=== PATIENT | male | born 1965 | race Caucasian/White ===

== ENCOUNTER 2019-06-20 12:08 | Inpatient (IN) | payer OTHER ==
[~2019-06-20] VITALS: Ht 185.4 cm; Wt 130.4 kg
[~2019-06-20 12:08] MED LIST changes: -ASPI81CH PO; -ATOR40TA PO; -CARV6.25 PO; -DEEP SEA44 ML; -FURO40 PO; -LISI20 PO; -METPRE4DP PO; -TICA90TA PO
[2019-06-20] MEDS ORDERED: METPRE4DP PO (13:35)
--- NOTE | 2019-06-20 15:00 | NUR ---
PT ARRIVED TO ROOM 304 FROM ER VIA W/C. PT STANDS, AMBULATES WITHOUT DIFFICULTY WITH STEADY GAIT. INDEPENDENT IN ROOM WITH ADL'S. DENIES PAIN OR DISCOMFORT. REPORTS HUNGER. ORIENTED TO ROOM AND CALL SYSTEM. CALL SCOTT IN REACH, WILL CONTINUE TO MONITOR.
--- NOTE | 2019-06-20 19:16 | NUR ---
NO ACUTE CHANGES SINCE ARRIVAL TO ROOM, WILL REPORT TO ONCOMING RN
[2019-06-21 04:50] LABS: BASOPHILS ABSOLUTE AUTO 0.02 K/mm3 (0.00-0.23); BASOPHILS PERCENT AUTO 0 % (0-2); EOSINOPHILS PERCENT AUTO 0 % (0-6); Hematocrit 43.6 % (37.0-53.0); Hemoglobin 14.5 g/dL (13.5-17.5); IMMATURE GRAN ABSOLUTE AUTO 0.04 K/mm3 (0.00-0.10); IMMATURE GRAN PERCENT AUTO 0 % (0-1); LYMPHOCYTES PERCENT AUTO 9 % (21-46); MONOCYTES ABSOLUTE AUTO 0.72 K/mm3 (0.16-1.47); MONOCYTES PERCENT AUTO 6 % (4-13); Mean Corpuscular HGB 28.8 pg (26.0-34.0); Mean Corpuscular HGB Conc 33.3 g/dL (31.5-36.5); Mean Corpuscular Volume 87 fL (80-100); Mean Platelet Volume 11.5 fL (9.1-12.4); NEUTROPHILS ABSOLUTE AUTO 10.74 K/mm3 (1.96-9.15); NEUTROPHILS PERCENT AUTO 84 % (41-73); Platelet Count 181 K/mm3 (150-400); RDW Coefficient Variation 12.5 % (11.7-14.2); RDW Standard Deviation 39.6 fL (35.1-46.3); Red Blood Cell Count 5.04 M/mm3 (4.30-5.90); White Blood Cell Count 12.72 K/mm3 (4.00-11.30)
[2019-06-21 05:07] LABS: Anion Gap 7 mmol/L (6-16); Blood Urea Nitrogen 28 mg/dL (8-24); Bun/Creatinine Ratio 36.4 (12.0-20.0); CO2, Blood 28 mmol/L (21-32); Calcium, Blood 8.8 mg/dL (8.5-10.1); Chloride, Blood 101 mmol/L (98-108); Creatinine, Blood 0.77 mg/dL (0.60-1.20); Glomerular Filtration Rate >60 (60-); Glucose, Blood 284 mg/dL (70-99); Potassium, Blood 4.3 mmol/L (3.5-5.5); Sodium, Blood 136 mmol/L (136-145)
--- NOTE | 2019-06-21 06:14 | NUR ---
SHIFT SUMMARY PT A/O INDEPENDENT. NO C/O PAIN OR CP. HE WAS ABLE TO SLEEP T/O NIGHT. STATES HIS BREATHING IS BETTER THAN IT WAS BEFORE. CALL LIGHT IN REACH.
--- NOTE | 2019-06-21 12:01 | NUR ---
Echocardiogram using 0.6ml of Definity contrast performed.
--- NOTE | 2019-06-21 16:48 | NUR ---
SHIFT SUMMARY: PT IS A/O X 4 WITH NO C/O PAIN. HE DENIES CHEST PAIN AND HAS NO SOB, LUNGS ARE CLEAR WITH TRACE EDEMA IN BLE. CARDIO CONSULT WAS CALLED IN AND THE DR IS SCHEDULING AN ANGIOGRAM IN THE MORNING. PT WILL BE NPO AFTER MIDNIGHT AND IS AGREEABLE TO HIS TX PLAN. CBGS HAVE BEEN COVERED WITH SLIDING SCALE ORDERED. PT IS PLEASANT AND COOPERATIVE WITH HIS CARE. HE IS UP AD HUMERA AND WALKS IN THE HALLS WITH NO ISSUES. HE CALLS FOR HELP WHEN NEEDED.
--- NOTE | 2019-06-21 19:52 | NUR ---
1919; ASSUMED CARE OF PATIEN. PATIENT SITTING DANGLING AT BEDSIDE, TALKING ON PHONE. PT DENIES PAIN/SOB/N/V/D BED LOW AND LOCKED. CALL SCOTT WITHIN REACH. 1953: PT OOB TO WALK IN [place].
[2019-06-22 04:53] LABS: BASOPHILS ABSOLUTE AUTO 0.11 K/mm3 (0.00-0.23); BASOPHILS PERCENT AUTO 1 % (0-2); EOSINOPHILS ABSOLUTE AUTO 0.18 K/mm3 (0.00-0.68); EOSINOPHILS PERCENT AUTO 2 % (0-6); Hematocrit 44.5 % (37.0-53.0); Hemoglobin 14.8 g/dL (13.5-17.5); IMMATURE GRAN ABSOLUTE AUTO 0.03 K/mm3 (0.00-0.10); IMMATURE GRAN PERCENT AUTO 0 % (0-1); LYMPHOCYTES ABSOLUTE AUTO 3.87 K/mm3 (0.84-5.20); LYMPHOCYTES PERCENT AUTO 34 % (21-46); MONOCYTES ABSOLUTE AUTO 0.97 K/mm3 (0.16-1.47); MONOCYTES PERCENT AUTO 8 % (4-13); Mean Corpuscular HGB 29.3 pg (26.0-34.0); Mean Corpuscular HGB Conc 33.3 g/dL (31.5-36.5); Mean Corpuscular Volume 88 fL (80-100); NEUTROPHILS ABSOLUTE AUTO 6.34 K/mm3 (1.96-9.15); NEUTROPHILS PERCENT AUTO 55 % (41-73); Platelet Count 183 K/mm3 (150-400); RDW Standard Deviation 41.6 fL (35.1-46.3); Red Blood Cell Count 5.05 M/mm3 (4.30-5.90)
[2019-06-22 05:05] LABS: International Normalized Ratio 0.97; Prothrombin Time Results 10.3 Sec (9.7-11.5)
[2019-06-22 05:17] LABS: Magnesium, Blood 1.8 mg/dL (1.6-2.4)
[2019-06-22 05:19] LABS: Anion Gap 5 mmol/L (6-16); Blood Urea Nitrogen 39 mg/dL (8-24); Bun/Creatinine Ratio 47.9 (12.0-20.0); CO2, Blood 28 mmol/L (21-32); Calcium, Blood 9.2 mg/dL (8.5-10.1); Chloride, Blood 103 mmol/L (98-108); Creatinine, Blood 0.82 mg/dL (0.60-1.20); Glomerular Filtration Rate >60 (60-); Glucose, Blood 249 mg/dL (70-99); Potassium, Blood 4.3 mmol/L (3.5-5.5); Sodium, Blood 136 mmol/L (136-145)
--- NOTE | 2019-06-22 10:29 | NUR ---
PT HAS BEEN A/O X 4 THIS MORNING WITH NO C/O PAIN OR DISCOMFORT. PT DENIES CHEST PAIN AND SOB. PER STUDIO OWNER PT IS IN SINUS RHYTHM @ 99. PT WAS CHEDULED FOR AN ANGIOGRAM THIS MORNING AND THE NURSES FROM THE [facility]ART [facility] CAME TO PICK HIM UP AROUND 10:15. PT HAS BEEN NPO SINCE MIDNIGHT. PT REPORTS HE IS MILDLY NERVOUS ABOUT THE PROCEDURE BUT IS COMPLIANT AND COOPERATIVE WITH HIS CURRENT TX PLAN. ALL BELONGINGS WERE BAGGED AND LABELED AND WILL BE SENT TO PCU 6. REPORT TO BE CALLED TO RECEIVING NURSE.
--- NOTE | 2019-06-22 11:01 | NUR ---
Telephone report received from Rajeev Peralta RN. STates that the pt has gone to the heart center for angiogram.
--- NOTE | 2019-06-22 12:49 | NUR ---
Pt arrived from [facility], two TR bands in place, one on each wrist. Sites are without bruising, swelling, bleeding or evidence of hematoma. Left band inflated 17 cc and right band 15 cc per report. The pt is alert, oriented, and cheerfully conversant. Denies pain or difficulty breathing at this time at rest. Walked to the bathroom to void and stated he had no pain or difficulty breathing. Was able to void without difficulty. Sitting on the side of the bed, eating sandwiches now.
--- NOTE | 2019-06-22 13:23 | NUR ---
No changes to the pt 's condition. ONe time high blood pressure, probably positional as the pt was sitting on the side of the bed, and blood pressure must be taken on his leg due to TR bands presence on both wrists. At this time, the pt is l sheree down and the pressure is WNL. No changes to the assesments of bilateral wrist arterial acces sites.
--- NOTE | 2019-06-22 15:28 | NUR ---
2 CC AIR REMOVED FROM TR BANDS, BILATERALLY. NO COMPLICATONS.
--- NOTE | 2019-06-22 16:00 | NUR ---
total of 7 cc of air has been removed from the right TR band. No bleeding, no bruising, no swelling, no evidence of hematoma. The pt is without any chest pain, discomfort, dyspnea or shortness of breath at rest nor with activity. Occasional dry cough noted. total of 6 cc air removed from the left TR band, also without any complications.
--- NOTE | 2019-06-22 17:45 | NUR ---
TR bands were fully deflated at 1650. The pt's wrists are without bruising, bleeding, hematoma, or swelling. He denies any pain or tingling in the arms. Sitting on the side of the bed, eating dinner without difficulty.
--- NOTE | 2019-06-22 17:55 | NUR ---
summary Received the pt from the heart center just after noon, with [address] Recovery from the TR bands was uneventful, and they were fully deflated by 5 pm. The pt has had stable vital signs, and ambulatory to the bathroom with no assistance after a couple of hours recovery time. Denies any pain, dyspnea or other discomfort. Voiding without difficulty. Heart rhythm noted to have developed a bundle branch block upon his arrival to PCU, which was different from his normal sinus rhythm while on the medical floor pre-angiogram. Dr. Raines was called, and he said that this had been noted as changed during the angiogram procedure today. EKG for documentation was done per his order post angio.
--- NOTE | 2019-06-22 18:35 | NUR ---
TR bands were removed, and the areas cleaned on both wrists and sterile clear dressing was applied. NO bleeding, no bruising, no swelling, no signs of hematoma. Pt denies any pain or discomfort. Vital signs remain stable.
--- NOTE | 2019-06-22 19:27 | NUR ---
BEDSIDE REPORT GIVEN TO NYASIA ALONZO RN. BILATERAL WRIST ARTERIAL ACCESS SITES ARE UNREMARKABLE.
[2019-06-23 03:45] LABS: Anion Gap 5 mmol/L (6-16); Blood Urea Nitrogen 39 mg/dL (8-24); Bun/Creatinine Ratio 47.8 (12.0-20.0); CO2, Blood 30 mmol/L (21-32); Calcium, Blood 8.8 mg/dL (8.5-10.1); Chloride, Blood 102 mmol/L (98-108); Creatinine, Blood 0.82 mg/dL (0.60-1.20); Glomerular Filtration Rate >60 (60-); Glucose, Blood 231 mg/dL (70-99); Magnesium, Blood 1.7 mg/dL (1.6-2.4); Potassium, Blood 4.6 mmol/L (3.5-5.5); Sodium, Blood 137 mmol/L (136-145)
--- NOTE | 2019-06-23 05:26 | NUR ---
SHIFT SUMMARY PT SLEEPING IN ROOM COMFORTABLY AT THIS TIME. NO AUCTE CHANGES IN STATUS T/O NIGHT. PT SLEPT WELL IN PERIODS, ASKED FOR SNACK DURING THE EARLY PORTION OF SHIFT. RESP EVEN UNLABORED ON RA W/ SATS >92%. DENIED ANY CP OR SOB. PT IS INDEPENDENT IN ROOM CALLS APPROPRIATELY. ARM BOARDS ON BILAT WRISTS FROM ANGIO IN PLACE. PT CAUTIOUS WITH MOVEMTNS AND REPORTS UNDERSTANDING OF BEING GENTLE W/ BILAT ARMS. PT TO UNDERGO CATH LATER THIS WEEK FOR STENT PLACEMENT, PER PT BUDGET ASSISTANT TOLD PT FRIDAY AFTERNOON. NO NOTE IS FOUND REPORTING DATE/TIME OF STENTS. WILL ADVISE DAY SHIFT RN TO DISCUSS AND GET TIMEFRAME FROM BUDGET ASSISTANT IN AM. CALL LIGHT IN REACH.
--- NOTE | 2019-06-23 16:42 | NUR ---
Ambulatory, walked in the hallway twice, slowly, and also throughout the day to void in the bathroom, without any chest pain/discomfort and only mild dyspnea. He states that he is noticing that he is still having some shortness of breath with activity, but that it is much better than before he came into the hospital. Per telemetry, sinus rhythm without bundle branch block which was seen yesterday. Blood pressure has been slightly lower. Instructed the pt to make position changes slowly and pay attention to how he feels as he might experience lightheadedness as his body is adjusting to the new medications. He denies feeling any dizzyness/lightheadedness.
[2019-06-24 04:32] LABS: Anion Gap 5 mmol/L (6-16); Blood Urea Nitrogen 32 mg/dL (8-24); Bun/Creatinine Ratio 40.5 (12.0-20.0); CO2, Blood 31 mmol/L (21-32); Calcium, Blood 9.3 mg/dL (8.5-10.1); Chloride, Blood 103 mmol/L (98-108); Creatinine, Blood 0.79 mg/dL (0.60-1.20); Glomerular Filtration Rate >60 (60-); Glucose, Blood 194 mg/dL (70-99); Magnesium, Blood 1.9 mg/dL (1.6-2.4); Potassium, Blood 4.6 mmol/L (3.5-5.5); Sodium, Blood 139 mmol/L (136-145)
--- NOTE | 2019-06-24 05:01 | NUR ---
SHIFT SUMMARY PT SLEEPING IN ROOM COMFORTABLY AT THIS TIME. NO ACUTE CHANGES IN STATUS T/O NIGHT. PT SLEPT WELL. DENIED ANY CP OR SOB. RESP EVEN UNLBAORED ON RA W/ SATS >92%. PT WAS MADE NPO AT 0000 FOR POSSIBLE STENT PLACEMENT LATER TODAY BY SPOOL TENDER. PT IS INDEPENDENT IN ROOM TO RR. DENIES OTHER NEEDS. CALL LIGHT IN REACH.
--- NOTE | 2019-06-24 08:00 | NUR ---
PT SITTING UP ON SIDE OF BED FOR BREAKFAST, A/OX3, PLEASANT AND COOPERATIVE WITH CARE, FOLLOWS COMMANDS WELL, DENIES PAIN, JUST SOB, LUNGS ARE CLEAR DIM IN BASES, RESP EVEN AND UNLABORED, NO COUGH NOTED, HRR, TELE IN PLACE RUNNING SR WITH BBB, +1 EDEMA NOTED TO B/L LE, PPP+1, CAP REFILL <3SEC, VS STABLE, AFEBRILE, IV SITE IS CLEAR AND PATENT, BTX4, ABD LARGE SOFT NONTENDER, VOIDS VIA WHEELCHAIR, SKIN HAS CATH SITES TO B/L WRISTS, SITES ARE CLEAR, MAEW, MARGUERITE, CALL LIGHT IN REACH.
--- NOTE | 2019-06-24 19:17 | NUR ---
PT DOING OK, CARDIOLOGY WAS IN WANTS 80MG LASIX GIVEN, THIS WAS DONE, HE TOLERATED, WILL HAVE A CATH IN AM, WAS PASSED ON TO KEEP NPO AFTER MID. NO FURTHER CHANGES THIS SHIFT. CALL LIGHT IN REACH.
[2019-06-25 04:06] LABS: Hematocrit 46.1 % (37.0-53.0); Hemoglobin 15.7 g/dL (13.5-17.5); Mean Corpuscular HGB 29.2 pg (26.0-34.0); Mean Corpuscular HGB Conc 34.1 g/dL (31.5-36.5); Mean Corpuscular Volume 86 fL (80-100); Platelet Count 164 K/mm3 (150-400); RDW Coefficient Variation 12.5 % (11.7-14.2); RDW Standard Deviation 38.6 fL (35.1-46.3); Red Blood Cell Count 5.38 M/mm3 (4.30-5.90); White Blood Cell Count 7.62 K/mm3 (4.00-11.30)
[2019-06-25 04:31] LABS: Anion Gap 5 mmol/L (6-16); Blood Urea Nitrogen 41 mg/dL (8-24); Bun/Creatinine Ratio 46.6 (12.0-20.0); CO2, Blood 29 mmol/L (21-32); Calcium, Blood 9.3 mg/dL (8.5-10.1); Chloride, Blood 103 mmol/L (98-108); Creatinine, Blood 0.88 mg/dL (0.60-1.20); Glomerular Filtration Rate >60 (60-); Glucose, Blood 188 mg/dL (70-99); Potassium, Blood 4.3 mmol/L (3.5-5.5); Sodium, Blood 137 mmol/L (136-145)
--- NOTE | 2019-06-25 05:31 | NUR ---
SHIFT SUMMARY PT SLEEPIGN IN ROOM COMFORTABLY AT THIS TIME. NO ACUTE CHANGES IN STATUS T/O NIGHT. PT SLEPT WELL AND WOKE TO VERBAL STIMULI EASILY. DENIED CP OR SOB T/O NIGHT. RESP EVEN UNLABORED ON RA W/ SATS >92%. PT WAS MADE NPO AT MIDNIGHT FOR ANGIO AND STENT PLACEMENT TODAY. PT IS INDEPENDENT IN ROOM. CALL LIGHT WITHIN REACH.
--- NOTE | 2019-06-25 13:43 | NUR ---
PT RETURNED FROM SHIPPING [facility]NAGER; STABLE CONDITION; VSS; FEMORAL SITE NO SIGNS OF BLEEDING BRUISING OR PAIN; SITE IS SOFT; STRONG PEDAL PULSES; CALL LIGHT IN REACH; BED IN LOWEST POSITION; WILL CONTINUE TO MONITOR
--- NOTE | 2019-06-25 20:11 | NUR ---
54 Y/O MALE RESTING COMFORTABLY IN BED, DENIES CHEST PAIN OR NAUSEA, VOICED HE DOES HAVE DYSPNEA AT TIMES WHICH RESOLVES WITH REST. ALERT AND ORIENTED X 4, RIGHT GROIN TEGADERM DRESSING DRY AND INTACT WITH SURROUNDING SKIN REFLECTING NO S/S INFECTION, TISSUE SOFT TO TOUCH, PT VOICED HE DOES NOT FOLLOW DIABETIC ROUTINE HE TENDS TO NOT FOLLOW THE DIET OR TAKE INSULIN AT TIMES. PT REQUIRES DIABETIC REINFORCEMENT BY NURSING STAFF.
--- NOTE | 2019-06-26 04:19 | NUR ---
SHIFT SUMMARY: 54 Y/O MALE RESTED COMFORTABLY IN BED ALL SHIFT, DENIES PAIN, NAUSEA OR DYSPNEA THIS SHIFT, HAPPY AND COOPERAIVE, NO S/S RIGHT GROIN, VITAL SIGNS STABLE, PT AMBULATED 20 FEET IN HALLWAY AND BACK TO ROOM TWICE THIS SHIFT WITH GAIT SLOW AND STEADY, BED LOW POSITION WITH CALL LIGHT AT SIDE.
--- NOTE | 2019-06-26 08:50 | NUR ---
PT PLEASANT QUITE TALKATIVE. STATES FEELS READY TO GO HOME. RT GROIN SITE CDI, NO BLEEDING NOTED. NO HEMATOMA NONTENDER. H/R REG, VERY LIGHT MURMER NOTED. PER TELE NSR AT 88. LUNGS CLEAR, RESP EASY, UNLABORED. ON R.A. BT X4 LAST BM THIS AM. VOIDS PER BATHROOM. PT UP WALKING HALLS. VERBALIZES UNDERSTANDING OF 10# LIFTING LIMIT PER DR CONTRERAS. BED IN LOW POSITOIN, CALL LITE IN REACH, CALLS APPROP
[2019-06-26 09:33] LABS: Anion Gap 7 mmol/L (6-16); Blood Urea Nitrogen 34 mg/dL (8-24); Bun/Creatinine Ratio 41.9 (12.0-20.0); CO2, Blood 26 mmol/L (21-32); Chloride, Blood 102 mmol/L (98-108); Creatinine, Blood 0.81 mg/dL (0.60-1.20); Glomerular Filtration Rate >60 (60-); Glucose, Blood 271 mg/dL (70-99); Potassium, Blood 4.5 mmol/L (3.5-5.5); Sodium, Blood 135 mmol/L (136-145)
--- NOTE | 2019-06-26 10:04 | NUR ---
DR CONTRERAS IN RELEASING PT. REQUEST F/UP 1 WEEK, NEEDS 30 CAMPLE CARD FOR BRILENTA. SAMPLES GIVEN TO PT IN DRAWER. STATES ON FOLLOWUP CALL CAN SEWER INSPECTOR CARD AT HIS OFFICE ON . START CARDIAC REHAB
[2019-06-26] MEDS ORDERED: ASPI81CH PO (11:35)
[2019-06-26] MEDS ORDERED: ATOR40TA PO (11:36)
[2019-06-26] MEDS ORDERED: FURO40 PO (11:37)
[2019-06-26] MEDS ORDERED: CARV6.25 PO (11:37)
[2019-06-26] MEDS ORDERED: TICA90TA PO (11:38)
[2019-06-26] MEDS ORDERED: LISI20 PO (11:38)
[2019-06-26] MEDS ORDERED: DEEP SEA44 ML (11:40)
--- NOTE | 2019-06-26 12:40 | NUR ---
DISCHARGE REVIEWED WITH PT. PT VERBALIZED UNDERSTANDING OF MEDS, NEED FOR PICKING UP BRILINTA CARD FOR 30 DAY SAMPLE. 2 BOTTLES SAMPLES GIVEN TO PT PER DR. BASURTO PULLED INTACT. TELE REMOVED. PT TO CALL DRS FOR APPTS ON TUES AM. PT READIED TO GO.
--- NOTE | 2019-06-26 13:01 | NUR ---
YESICA D/C AT 1300 TAKEN BY ARIANA
== END 2019-06-26 13:00 | disposition home or self-care (01) | DRG 246 ==
LOC: ER 12:08 → PCU 14:27 → MEDS 14:27 → PCU 06-22 12:24
PROVIDERS: Internal Medicine; Internal Medicine Interventional Cardiology; ADMIT Hospitalist
PROC: 4A033BC Measurement of Arterial Pressure, Coronary, Percutaneous Approach (ICD-10-PCS; principal; 2019-06-25)
PROC: 027034Z Dilation of Coronary Artery, One Artery with Drug-eluting Intraluminal Device, Percutaneous Approach (ICD-10-PCS; 2019-06-25)
PROC: 02703ZZ Dilation of Coronary Artery, One Artery, Percutaneous Approach (ICD-10-PCS; 2019-06-25)
PROC: B240ZZ3 Ultrasonography of Single Coronary Artery, Intravascular (ICD-10-PCS; 2019-06-25)
PROC: 4A023N7 Measurement of Cardiac Sampling and Pressure, Left Heart, Percutaneous Approach (ICD-10-PCS; 2019-06-25)
PROC: 4A12XSH Monitoring of Cardiac Vascular Perfusion using Indocyanine Green Dye, External Approach (ICD-10-PCS; 2019-06-25)
PROC: B2111ZZ Fluoroscopy of Multiple Coronary Arteries using Low Osmolar Contrast (ICD-10-PCS; 2019-06-25)
DX: I25.10 Atherosclerotic heart disease of native coronary artery without angina pectoris (principal); I50.41 Acute combined systolic (congestive) and diastolic (congestive) heart failure; I42.0 Dilated cardiomyopathy; Z87.891 Personal history of nicotine dependence; J45.40 Moderate persistent asthma, uncomplicated; I34.0 Nonrheumatic mitral (valve) insufficiency; Z79.84 Long term (current) use of oral hypoglycemic drugs; E11.65 Type 2 diabetes mellitus with hyperglycemia
CPT/HCPCS: 36415; 76937; 80048; 82728; 82947; 83036; 83735; 83880; 84443; 84484; 85025; 85027; 85347; 85610; 85730; 92978; 93005; 93010; 93458; 93571; 99152; 99153; 99285-25; C1725; C1753; C1760; C1769; C1874; C1887; C1894; C8929; C9600; J0153; J1644; J1650; J1940; J2250; J3010; J7030; Q9957; Q9967

== ENCOUNTER → 2019-06-20 | Outpatient (CLI) | payer OTHER ==
[~2019-06-20] MED LIST: AMOX500 PO; ASPI81CH PO; ATOR40TA PO; CARV6.25 PO; DEEP SEA44 ML; FURO40 PO; GLIM4 PO; HYDACE5 PO; LISI20 PO; METF500 PO; METPRE4DP PO; PENVK500 PO; TICA90TA PO
[2019-06-20 11:15] LABS: BASOPHILS ABSOLUTE AUTO 0.11 K/mm3 (0.00-0.23); BASOPHILS PERCENT AUTO 1 % (0-2); EOSINOPHILS ABSOLUTE AUTO 0.05 K/mm3 (0.00-0.68); EOSINOPHILS PERCENT AUTO 0 % (0-6); Hematocrit 43.9 % (37.0-53.0); Hemoglobin 15.1 g/dL (13.5-17.5); IMMATURE GRAN ABSOLUTE AUTO 0.03 K/mm3 (0.00-0.10); IMMATURE GRAN PERCENT AUTO 0 % (0-1); LYMPHOCYTES ABSOLUTE AUTO 2.51 K/mm3 (0.84-5.20); LYMPHOCYTES PERCENT AUTO 22 % (21-46); MONOCYTES ABSOLUTE AUTO 0.88 K/mm3 (0.16-1.47); MONOCYTES PERCENT AUTO 8 % (4-13); Mean Corpuscular HGB 29.6 pg (26.0-34.0); Mean Corpuscular HGB Conc 34.4 g/dL (31.5-36.5); Mean Corpuscular Volume 86 fL (80-100); NEUTROPHILS ABSOLUTE AUTO 7.73 K/mm3 (1.96-9.15); NEUTROPHILS PERCENT AUTO 68 % (41-73); Platelet Count 176 K/mm3 (150-400); RDW Coefficient Variation 12.9 % (11.7-14.2); RDW Standard Deviation 39.8 fL (35.1-46.3); White Blood Cell Count 11.31 K/mm3 (4.00-11.30)
[2019-06-20 11:35] LABS: Alanine Aminotransfer (ALT/SGP 41 U/L (12-78); Albumin, Blood 3.9 g/dL (3.4-5.0); Albumin/Globulin Ratio 0.9 (0.8-1.8); Alk Phos 54 U/L (40-126); Anion Gap 11 mmol/L (6-16); Aspartate Aminotrans (AST/SGOT 22 U/L (12-37); Bilirubin, Total 0.8 mg/dL (0.1-1.0); Blood Urea Nitrogen 17 mg/dL (8-24); Bun/Creatinine Ratio 19.3 (12.0-20.0); CO2, Blood 27 mmol/L (21-32); CPK Creatine Kinase 62 U/L (39-308); Chloride, Blood 100 mmol/L (98-108); Creatinine, Blood 0.88 mg/dL (0.60-1.20); Free Thyroxine 1.02 ng/dL (0.70-1.60); Globulin, Blood 4.2 g/dL (2.2-4.0); Glomerular Filtration Rate >60 (60-); Glucose, Blood 259 mg/dL (70-99); Potassium, Blood 4.4 mmol/L (3.5-5.5); Sodium, Blood 138 mmol/L (136-145); Thyroid Stimulating Hormone 3.009 uIU/mL (0.360-4.800); Total Protein, Blood 8.1 g/dL (6.4-8.2); Troponin I 0.212 ng/mL (0.000-0.040)
== END | disposition home or self-care (01) ==
LOC: LAB EV 11:09 → LAB SHORT 11:09
PROVIDERS: General Practice
DX: J44.9 Chronic obstructive pulmonary disease, unspecified (principal); I50.9 Heart failure, unspecified
CPT/HCPCS: 80053; 82550; 83880; 84439; 84443; 84484; 85025

== ENCOUNTER → 2019-11-04 | Outpatient (CLI) | payer OTHER ==
[~2019-11-04] MED LIST changes: +ASPI81CH PO; +ATOR40TA PO; +CARV6.25 PO; +DEEP SEA44 ML; +FURO40 PO; +LISI20 PO; +METPRE4DP PO; +TICA90TA PO
== END | disposition home or self-care (01) ==
LOC: LAB SHORT 16:10 → LAB EV 16:10
DX: L72.3 Sebaceous cyst (principal)
CPT/HCPCS: 87070; 87075; 87076; 87205

== ENCOUNTER → 2019-11-11 | Outpatient (CLI) | payer OTHER | END | disposition home or self-care (01) | LOC: LAB SHORT 12:09 → LAB EV 12:09 | DX: L72.3 Sebaceous cyst (principal) | CPT/HCPCS: 87070; 87075; 87205 ==

== ENCOUNTER 2020-07-31 13:32 | Inpatient (IN) | payer OTHER ==
[~2020-07-31] VITALS: Ht 185.4 cm; Wt 123.1 kg
[~2020-07-31 13:32] MED LIST changes: -BENADRYL25 MG PO; -Doxycycline Mo100 M1 PO; -FURO20 PO; -GLIP5 PO; -PLAVIX75 MG PO; -SPIR25 PO; -[UNRECOGNIZED DRUG - OTHER]
[2020-07-31] MEDS ORDERED: PLAVIX75 MG PO (14:31)
--- NOTE | 2020-07-31 17:03 | NUR ---
Echocardiogram completed.
[2020-07-31 17:21] LABS: Influenza A, PCR Negative (NEGATIVE); Influenza B, PCR Negative (NEGATIVE); Resp Syncytial Virus, PCR Negative (NEGATIVE); SARS-Cov-2 (COVID-19) PCR, MMC Negative (NEGATIVE)
[2020-07-31] MEDS ORDERED: Doxycycline Mo100 M1 PO (17:43)
[2020-07-31] MEDS ORDERED: BENADRYL25 MG PO (17:45)
[2020-07-31] MEDS ORDERED: [UNRECOGNIZED DRUG - OTHER] (17:47)
--- NOTE | 2020-07-31 18:55 | NUR ---
PT IS NEW ADMIT FROM ER FOR C/O ACUTE HF. PT STATES INCREASING SOB OVER THE PAST 2 WEEKS WITH MILD EDEMA TO BILATERAL FEET, WAS SEEN AT URGENT CARE TODAY AND FOUND TO HAVE ELEVATED TROPONIN LEVEL THEN SENT HERE FOR ADMISSION. PT IS A&OX4, TRANSFERS SELF FROM [facility] IN ROOM, SATS ON ROOM AIR, PLACED ON TELE WITH SINUS TACH ON MONITOR. PT DENIES SOB AND CP UPON ADMISSION. DINNER TRAY HAS BEEN ORDERED. WILL CONTINUE TO MONITOR UNTIL CHANGE OF SHIFT.
[2020-08-01 03:46] LABS: BASOPHILS ABSOLUTE AUTO 0.05 K/mm3 (0.00-0.23); BASOPHILS PERCENT AUTO 1 % (0-2); EOSINOPHILS ABSOLUTE AUTO 0.01 K/mm3 (0.00-0.68); EOSINOPHILS PERCENT AUTO 0 % (0-6); Hematocrit 43.3 % (37.0-53.0); Hemoglobin 14.2 g/dL (13.5-17.5); IMMATURE GRAN ABSOLUTE AUTO 0.03 K/mm3 (0.00-0.10); IMMATURE GRAN PERCENT AUTO 0 % (0-1); LYMPHOCYTES ABSOLUTE AUTO 1.07 K/mm3 (0.84-5.20); LYMPHOCYTES PERCENT AUTO 15 % (21-46); MONOCYTES ABSOLUTE AUTO 0.17 K/mm3 (0.16-1.47); MONOCYTES PERCENT AUTO 2 % (4-13); Mean Corpuscular HGB 28.2 pg (26.0-34.0); Mean Corpuscular HGB Conc 32.8 g/dL (31.5-36.5); Mean Corpuscular Volume 86 fL (80-100); Mean Platelet Volume 10.9 fL (9.1-12.4); NEUTROPHILS ABSOLUTE AUTO 5.95 K/mm3 (1.96-9.15); NEUTROPHILS PERCENT AUTO 82 % (41-73); Platelet Count 168 K/mm3 (150-400); RDW Coefficient Variation 11.8 % (11.7-14.2); RDW Standard Deviation 36.4 fL (35.1-46.3); Red Blood Cell Count 5.04 M/mm3 (4.30-5.90); White Blood Cell Count 7.28 K/mm3 (4.00-11.30)
[2020-08-01 04:05] LABS: Anion Gap 5 mmol/L (6-16); Blood Urea Nitrogen 24 mg/dL (8-24); Bun/Creatinine Ratio 39.1 (12.0-20.0); CO2, Blood 27 mmol/L (21-32); Chloride, Blood 103 mmol/L (98-108); Creatinine, Blood 0.61 mg/dL (0.60-1.20); Glomerular Filtration Rate >60 (60-); Glucose, Blood 353 mg/dL (70-99); Sodium, Blood 135 mmol/L (136-145)
--- NOTE | 2020-08-01 05:29 | NUR ---
SHIFT SUMMARY PT IS ALERT, ORIENTED, AND COOPERATIVE WITH CARE. PT DENIED ANY PAIN, OR CHEST DISCOMFORT. STATED HE WAS SLIGHTLY SHORT OF BREATH WHEN UP TO USE RESTROOM. VITALS STABLE, BP 120-130 SYSTOLIC, HR 90'S IN SINUS RHYTHM WITH PVC AND PAC'S, ON ROOM AIR WITH O2 SATS IN THE 90'S. BLOOD GLUCOSE HAS BEEN HYPERGLYCEMIC T/O THE NIGHT. PT HAD SEVERAL 2X2CM BLOOD SPOTS ON UNDERWEAR, PT WAS UNSURE WHERE IT WAS FROM, I ASSESSED THE AREA AND COULD NOT FIND THE SOURCE, PT HAD JUST URINATED, URINE AND URETHRA SHOWED NO BLOOD. PT DENIED ANY PAIN, NO MORE BLOOD WAS FOUND T/O SHIFT. PT ABLE TO GET SOME REST. WILL CONTINUE TO MONITOR UNTIL SHIFT CHANGE.
--- NOTE | 2020-08-01 16:36 | NUR ---
TRANSFER NOTE PT A&Ox4; CALM AND COOPERATIVE WITH CARE. PT UP WALKING IND T/O HALLS AND IN ROOM. PT DENIES PAIN, CHEST PAIN, SOB, NAUSEA AND DIZZINESS. VSS. NO OTHER ACUTE CHANGES NOTED DURING SHIFT. REPORT GIVEN TO [facility] R[facility]EE ASSUMING CARE OF PT. PT LEFT ROOM VIA WHEELCHAIR AT 1625.
--- NOTE | 2020-08-01 17:14 | NUR ---
PCU TRANSFER- PT ARRIVED TO ROOM 305 FROM PCU 2 AT 1650. PT INDEP UP IN ROOM. PT DENIES ANY PAIN OR OTHER COMPLAINTS. LS CLEAR, ON RA, PT REPORTS VERY MINIMAL SOB WITH EXERTION AND HAS MUCH IMPROVED SINCE ARRIVING. HRR. PT DENIES ANY CHEST PAIN. BLOOD GLUCOSE NOTED TO BE 433, DR FERNANDEZ NOTIFIED AND REPORTS WILL ADJUST ORDERS. PT ORIENTED TO ROOM AND CALL SYSTEM, CALL LIGHT IN REACH.
--- NOTE | 2020-08-02 03:52 | NUR ---
INCIDENT RESPONSE ENGINEER SUMMARY Brayan slept through the night. No complaints of discomfort or SOB. Lower extremity edema is 1+ bilateral which patient thinks is quite an improvement. He refused his only HS med which was librium. He stated He was not anxious or depressed, and he said he "hardly drank enough to go through any kind of withdrawel process". Hoping he will be able to go home after seeing the doctor tommorow.
[2020-08-02 04:57] LABS: BASOPHILS ABSOLUTE AUTO 0.08 K/mm3 (0.00-0.23); BASOPHILS PERCENT AUTO 1 % (0-2); EOSINOPHILS ABSOLUTE AUTO 0.11 K/mm3 (0.00-0.68); EOSINOPHILS PERCENT AUTO 1 % (0-6); Hematocrit 41.1 % (37.0-53.0); Hemoglobin 14.1 g/dL (13.5-17.5); IMMATURE GRAN ABSOLUTE AUTO 0.03 K/mm3 (0.00-0.10); IMMATURE GRAN PERCENT AUTO 0 % (0-1); LYMPHOCYTES ABSOLUTE AUTO 3.36 K/mm3 (0.84-5.20); LYMPHOCYTES PERCENT AUTO 34 % (21-46); MONOCYTES PERCENT AUTO 8 % (4-13); Mean Corpuscular HGB Conc 34.3 g/dL (31.5-36.5); Mean Corpuscular Volume 84 fL (80-100); Mean Platelet Volume 11.1 fL (9.1-12.4); NEUTROPHILS ABSOLUTE AUTO 5.55 K/mm3 (1.96-9.15); NEUTROPHILS PERCENT AUTO 56 % (41-73); Platelet Count 178 K/mm3 (150-400); RDW Coefficient Variation 11.9 % (11.7-14.2); RDW Standard Deviation 35.8 fL (35.1-46.3); Red Blood Cell Count 4.87 M/mm3 (4.30-5.90); White Blood Cell Count 9.93 K/mm3 (4.00-11.30)
[2020-08-02 05:16] LABS: Anion Gap 5 mmol/L (6-16); Blood Urea Nitrogen 31 mg/dL (8-24); Bun/Creatinine Ratio 45.2 (12.0-20.0); CO2, Blood 28 mmol/L (21-32); Chloride, Blood 102 mmol/L (98-108); Creatinine, Blood 0.69 mg/dL (0.60-1.20); Glomerular Filtration Rate >60 (60-); Glucose, Blood 203 mg/dL (70-99); Potassium, Blood 4.1 mmol/L (3.5-5.5); Sodium, Blood 135 mmol/L (136-145); Troponin I 0.267 ng/mL (0.000-0.040)
--- NOTE | 2020-08-02 10:04 | NUR ---
HYPOTENSION- BP NOTED TO BE 94/61 THIS AM, HR IN THE 80'S. SPOKE WITH DR FERNANDEZ WHO REPORTS TO GO AHEAD AND GIVE CARVEDILOL AND HOLD LISINOPRIL AND DIURETICS AT THIS TIME. WILL CONT TO MONITOR BP. PT DENIES ANY DIZZIESS OR LIGHTHEADEDNESS.
[2020-08-02] MEDS ORDERED: FURO20 PO (12:41)
[2020-08-02] MEDS ORDERED: GLIP5 PO (12:41)
[2020-08-02] MEDS ORDERED: SPIR25 PO (12:42)
--- NOTE | 2020-08-02 14:18 | NUR ---
DISCHARGE INSTRUCTIONS REVIEWED WITH PT. IV DC'D INTACT. RX FAXED TO [facility]. ATTEMPTED TO CALL PCP BUT NO RESPONSE FOR F/U APPT, PT REPORTS WILL CALL AND SCHEDULE AN APPT. PT ESTABLISHED WITH NEW SAMPLE BODY BUILDER DR ROJAS DUE TO HIS CARDIOLIGST LEAVING SOON, F/U APPT SCHEDULED. DISCUSSED IN DEPT WITH PT REGARDING MEDICATIONS, DIET AND WHAT TO MONITOR. PT DC'D HOME, ESCORTED OUT VIA W/C AT 1415.
== END 2020-08-02 14:15 | disposition home or self-care (01) | DRG 282 ==
LOC: ER 13:32 → PCU 15:50 → MEDS 15:50 → PCU 17:27 → MEDS 17:40 → PCU 08-01 12:52 → MEDS 08-01 16:36
PROVIDERS: Emergency Medicine; Internal Medicine; ADMIT Internal Medicine
DX: I11.0 Hypertensive heart disease with heart failure (principal); I21.A1 Myocardial infarction type 2; I50.43 Acute on chronic combined systolic (congestive) and diastolic (congestive) heart failure; E11.59 Type 2 diabetes mellitus with other circulatory complications; I25.10 Atherosclerotic heart disease of native coronary artery without angina pectoris; Z95.5 Presence of coronary angioplasty implant and graft; F17.210 Nicotine dependence, cigarettes, uncomplicated; J44.9 Chronic obstructive pulmonary disease, unspecified
CPT/HCPCS: 0241U; 36415; 80048; 82947; 84484; 85025; 93005; 93010; 99285-25; A9270; A9270-GY; C8929; J1940; J7512; Q9957

== ENCOUNTER → 2020-07-31 | Outpatient (CLI) | payer OTHER ==
[~2020-07-31] MED LIST changes: +BENADRYL25 MG PO; -CARV6.25 PO; +Carvedilol12.5 MG PO; +Doxycycline Mo100 M1 PO; +FURO20 PO; +GLIP5 PO; -LISI20 PO; +PLAVIX75 MG PO; +Prinivil10 MG PO; +SPIR25 PO; +[UNRECOGNIZED DRUG - OTHER]
[2020-07-31 12:18] LABS: BASOPHILS ABSOLUTE AUTO 0.07 K/mm3 (0.00-0.23); BASOPHILS PERCENT AUTO 1 % (0-2); EOSINOPHILS ABSOLUTE AUTO 0.13 K/mm3 (0.00-0.68); EOSINOPHILS PERCENT AUTO 2 % (0-6); Hematocrit 42.7 % (37.0-53.0); Hemoglobin 14.7 g/dL (13.5-17.5); IMMATURE GRAN ABSOLUTE AUTO 0.02 K/mm3 (0.00-0.10); IMMATURE GRAN PERCENT AUTO 0 % (0-1); LYMPHOCYTES ABSOLUTE AUTO 2.08 K/mm3 (0.84-5.20); LYMPHOCYTES PERCENT AUTO 26 % (21-46); MONOCYTES ABSOLUTE AUTO 0.62 K/mm3 (0.16-1.47); MONOCYTES PERCENT AUTO 8 % (4-13); Mean Corpuscular HGB 28.9 pg (26.0-34.0); Mean Corpuscular HGB Conc 34.4 g/dL (31.5-36.5); Mean Corpuscular Volume 84 fL (80-100); Mean Platelet Volume 11.1 fL (9.1-12.4); NEUTROPHILS ABSOLUTE AUTO 5.01 K/mm3 (1.96-9.15); NEUTROPHILS PERCENT AUTO 63 % (41-73); Platelet Count 177 K/mm3 (150-400); RDW Coefficient Variation 11.9 % (11.7-14.2); Red Blood Cell Count 5.08 M/mm3 (4.30-5.90); White Blood Cell Count 7.93 K/mm3 (4.00-11.30)
[2020-07-31 12:43] LABS: Anion Gap 8 mmol/L (6-16); Blood Urea Nitrogen 19 mg/dL (8-24); Bun/Creatinine Ratio 25.7 (12.0-20.0); CO2, Blood 28 mmol/L (21-32); Calcium, Blood 9.2 mg/dL (8.5-10.1); Chloride, Blood 101 mmol/L (98-108); Creatinine, Blood 0.74 mg/dL (0.60-1.20); Glomerular Filtration Rate >60 (60-); Glucose, Blood 381 mg/dL (70-99); Potassium, Blood 4.7 mmol/L (3.5-5.5); Sodium, Blood 137 mmol/L (136-145); Troponin I 0.387 ng/mL (0.000-0.040)
== END | disposition home or self-care (01) ==
LOC: LAB EV 12:11
PROVIDERS: Family Medicine
DX: R06.00 Dyspnea, unspecified (principal)
CPT/HCPCS: 83880; 84484; 85025; 85379

== ENCOUNTER → 2021-11-14 | Outpatient (CLI) | payer OTHER ==
[~2021-11-14] MED LIST changes: +BENADRYL25 MG PO; +Doxycycline Mo100 M1 PO; +FURO20 PO; +GLIP5 PO; +PLAVIX75 MG PO; +SPIR25 PO; +[UNRECOGNIZED DRUG - OTHER]
== END ==
LOC: LAB SHORT 19:12 → LAB 19:12
DX: L72.3 Sebaceous cyst (principal)
CPT/HCPCS: 87070; 87075; 87205

== ENCOUNTER → 2021-11-22 | Outpatient (CLI) | payer OTHER ==
[~2021-11-22] MED LIST changes: +CEFTRIAXON1 GM/50 M1 IV; +CLIN150 PO
== END | disposition home or self-care (01) ==
LOC: LAB SHORT 12:35 → LAB 12:35
DX: L02.91 Cutaneous abscess, unspecified (principal)
CPT/HCPCS: 87070; 87075; 87205

== ENCOUNTER 2021-11-24 14:44 | Day surgery (SDC) | payer OTHER ==
[~2021-11-24 14:44] MED LIST changes: -CEFTRIAXON1 GM/50 M1 IV; -CLIN150 PO
[2021-11-24] MEDS ORDERED: CEFTRIAXON1 GM/50 M1 IV (18:08)
[2021-11-24] MEDS ORDERED: CLIN150 PO (18:09)
== END 2021-11-24 15:35 | disposition home or self-care (01) ==
LOC: ATC 14:44
DX: L02.91 Cutaneous abscess, unspecified (principal); E11.9 Type 2 diabetes mellitus without complications; I11.0 Hypertensive heart disease with heart failure; I50.9 Heart failure, unspecified; F17.200 Nicotine dependence, unspecified, uncomplicated; E66.9 Obesity, unspecified
CPT/HCPCS: 96374

== ENCOUNTER 2021-11-25 14:51 | Day surgery (SDC) | payer OTHER ==
[~2021-11-25 14:51] MED LIST changes: +CEFTRIAXON1 GM/50 M1 IV; +CLIN150 PO
== END 2021-11-25 15:13 | disposition home or self-care (01) ==
LOC: ATC 14:51
DX: L02.91 Cutaneous abscess, unspecified (principal); E11.9 Type 2 diabetes mellitus without complications; I11.0 Hypertensive heart disease with heart failure; I50.9 Heart failure, unspecified; E66.9 Obesity, unspecified
CPT/HCPCS: 96372; J0696

== ENCOUNTER 2021-11-26 13:02 | Day surgery (SDC) | payer OTHER | END 2021-11-26 22:50 | disposition home or self-care (01) | LOC: ATC 13:02 | DX: L02.91 Cutaneous abscess, unspecified (principal) | CPT/HCPCS: 96372; J0696 ==

== ENCOUNTER 2021-11-27 01:00 | Day surgery (SDC) | payer OTHER | END 2021-11-27 17:08 | disposition home or self-care (01) | LOC: ATC 01:00 | DX: L02.212 Cutaneous abscess of back [any part, except buttock and flank] (principal); F17.290 Nicotine dependence, other tobacco product, uncomplicated; I10 Essential (primary) hypertension; E66.9 Obesity, unspecified; E11.65 Type 2 diabetes mellitus with hyperglycemia; B95.4 Other streptococcus as the cause of diseases classified elsewhere; Z79.84 Long term (current) use of oral hypoglycemic drugs; Z68.33 Body mass index [BMI] 33.0-33.9, adult | CPT/HCPCS: 96372; J0696; J2001 ==

== ENCOUNTER 2021-11-28 00:56 | Day surgery (SDC) | payer OTHER | END 2021-11-28 17:02 | disposition home or self-care (01) | LOC: ATC 00:56 | DX: L02.91 Cutaneous abscess, unspecified (principal); E11.9 Type 2 diabetes mellitus without complications; I11.0 Hypertensive heart disease with heart failure; I50.9 Heart failure, unspecified; E66.9 Obesity, unspecified | CPT/HCPCS: J0696; J2001 ==

== ENCOUNTER → 2021-12-19 | Outpatient (CLI) | payer OTHER ==
[2021-12-19 18:09] LABS: Anion Gap 5 mmol/L (6-16); Blood Urea Nitrogen 14 mg/dL (8-24); Bun/Creatinine Ratio 22.8 (12.0-20.0); CO2, Blood 27 mmol/L (21-32); Calcium, Blood 9.2 mg/dL (8.5-10.1); Chloride, Blood 103 mmol/L (98-108); Creatinine, Blood 0.62 mg/dL (0.60-1.20); Glomerular Filtration Rate >60 (60-); Glucose, Blood 317 mg/dL (70-99); Potassium, Blood 4.4 mmol/L (3.5-5.5); Sodium, Blood 135 mmol/L (136-145)
== END | disposition home or self-care (01) ==
LOC: LAB SHORT 11:25 → LAB 11:25
PROVIDERS: Family Medicine
DX: I10 Essential (primary) hypertension (principal)
CPT/HCPCS: 80048

== ENCOUNTER → 2021-12-24 | Outpatient (CLI) | payer OTHER | END | disposition home or self-care (01) | LOC: LAB 13:32 → LAB SHORT 13:32 | DX: L72.3 Sebaceous cyst (principal) | CPT/HCPCS: 87070; 87205 ==

== ENCOUNTER → 2022-01-07 | Outpatient (CLI) | payer OTHER | END | disposition home or self-care (01) | LOC: LAB SHORT 12:48 | DX: L02.91 Cutaneous abscess, unspecified (principal) | CPT/HCPCS: 87070; 87075; 87205 ==

== ENCOUNTER → 2022-08-31 | Outpatient (CLI) | payer OTHER | END | disposition home or self-care (01) | LOC: LAB SHORT 13:19 → LAB 13:19 | DX: L72.0 Epidermal cyst (principal) | CPT/HCPCS: 87070; 87075; 87205 ==

== ENCOUNTER → 2022-12-06 | Outpatient (CLI) | payer OTHER ==
[2022-12-06 16:16] LABS: Creatinine, Urine Random 83.3 mg/dL (27.00-270.00); Microalb/Creat Ratio UR, Rand 310.924 mg/g (0.000-30.000)
== END ==
LOC: LAB 13:50 → LAB SHORT 13:50
PROVIDERS: Physician Assistant
DX: E11.9 Type 2 diabetes mellitus without complications (principal)
CPT/HCPCS: 82043; 82570

== ENCOUNTER → 2023-12-12 | Outpatient (CLI) | payer OTHER | END | disposition home or self-care (01) | LOC: LAB SHORT 10:43 | DX: L02.212 Cutaneous abscess of back [any part, except buttock and flank] (principal) | CPT/HCPCS: 87070; 87075; 87185; 87205 ==

== ENCOUNTER → 2025-07-02 | Outpatient (CLI) | payer OTHER | LOC: LAB 14:48 | DX: R22.43 Localized swelling, mass and lump, lower limb, bilateral (principal) ==